=== PATIENT | female | born 1965 ===

== ENCOUNTER 2021-05-05 11:45 | Inpatient (IN) | payer OTHER ==
[~2021-05-05] VITALS: Ht 162.6 cm; Wt 70.3 kg
== END 2021-05-14 13:51 | disposition home or self-care (01) | DRG 330 ==
LOC: O/R 05-11 06:52 → SURH 05-11 06:52 → SURG 05-11 11:45 → SURH 05-11 15:26
PROVIDERS: ADMIT Colon & Rectal Surgery; ATTEND Colon & Rectal Surgery
PROC: 0DTP4ZZ Resection of Rectum, Percutaneous Endoscopic Approach (ICD-10-PCS; 2021-05-11)
PROC: 0USG4ZZ Reposition Vagina, Percutaneous Endoscopic Approach (ICD-10-PCS; 2021-05-11)
PROC: 0DTN4ZZ Resection of Sigmoid Colon, Percutaneous Endoscopic Approach (ICD-10-PCS; principal; 2021-05-11 13:15)
DX: K57.20 Diverticulitis of large intestine with perforation and abscess without bleeding (principal); N82.3 Fistula of vagina to large intestine; D12.5 Benign neoplasm of sigmoid colon; L40.9 Psoriasis, unspecified